=== PATIENT | female | born 1965 | race African-American/Black ===

== ENCOUNTER 2016-07-23 14:56 | Emergency (ER) | payer OTHER ==
[~2016-07-23 14:56] MED LIST: IBUPROFEN800 MG PO; TAMIFLU 75MG75 MG PO; TESSALON PERLE100 MG PO; [UNRECOGNIZED DRUG - OTHER] PO
[2016-07-23] MEDS ORDERED: LOSARTAN POTASS50 M1 PO (16:03)
[2016-07-23] MEDS ORDERED: JANUMET 50-5001 EACH PO (16:05)
--- NOTE | 2016-07-23 20:04 | ED PSYCHIATRIC COMPLAINT ---
History of Present Illness General Chief Complaint: Psychiatric Related Complaint Stated Complaint: BIBA FOR +SI Source: patient, police Exam Limitations: no limitations Vital Signs & Intake/Output Vital Signs & Intake/Output Vital Signs Date Time Temp Pulse Resp B/P Pulse O2 O2 Flow FiO2 Ox Delivery Rate 07/23 1534 Room Air 07/23 1534 97.3 72 16 164/73 Allergies Coded Allergies: No Known Allergies (08/26/15) Reconcile Medications Losartan Potassium 50 MG TABLET 1 TAB PO DAILY BLOOD PRESSURE (Reported) Sitagliptin Phos/Metformin HCl (Janumet 50-500 MG Tablet) 50 MG-500 MG TABLET 1 TAB PO BID DIABETES (Reported) Triage Note: PT MADE SI COMMENT TO HER CHILDREN'S FATHER OVER THE PHONE. PT DENIES SI AT THIS TIME. PT DENIES ANY PREVIOUS ATTEMPTS. PT STATES "I'M NOT CRAZY" Triage Nurses Notes Reviewed? yes HPI: Patient presents for evaluation of suicide ideation comments made toward her boyfriend after she found out that he had been cheating on her. Patient states that she wished to "get back at him" for what he had done. The patient states that she is no longer suicidal and denies any prior attempts at suicide. (REANNA JOHN,DIAMANTE Avina) Past History Travel History Traveled to [place] past 21 day No Medical History Any Pertinent Medical History? 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 No (DIAMANTE FORTE MD) Review of Systems Review of Systems Constitutional: Reports: no symptoms. EENTM: Reports: no symptoms. Respiratory: Reports: no symptoms. Cardiovascular: Reports: no symptoms. GI: Reports: no symptoms. Genitourinary: Reports: no symptoms. Musculoskeletal: Reports: no symptoms. Skin: Reports: no symptoms. Neurological/Psychological: Reports: see HPI. Hematologic/Endocrine: Reports: no symptoms. Immunologic/Allergic: Reports: no symptoms. All Other Systems: Reviewed and Negative (DIAMANTE FORTE MD) Physical Exam Physical Exam General Appearance: SEE BELOW Neurological/Psychiatric: SEE BELOW Comments: General: Alert, calm, cooperative Head: Normocephalic, atraumatic Eyes: Normal inspection, no nystagmus, EOMI Ears: Normal inspection Nose: Normal inspection Throat: Moist mucosa Neck: Supple, no goiter Heart: Regular rate and rhythm, no murmurs rubs or gallops Lungs: Clear to auscultation bilaterally with good air entry Abdomen: Soft nontender nondistended, normal bowel sounds Chest: Nontender Extremities: Normal range of motion grossly, no tremors present, no cyanosis clubbing or edema of the upper extremities Neurologic: cranial nerves II through XII grossly intact, speech clear, gait normal Psychiatric: No apparent delusions or hallucinations, no pressured speech or thought blocking SAD PERSONS Done? DEFERRED TO CRISIS (REANNA JOHN,DIAMANTE Avina) Progress Differential Diagnosis: DEPRESSION, SUICIDE IDEATION, BIPOLAR DISORDER, BORDERLINE PERSONALITY Plan of Care: Orders Procedure Date/time Status URINE DRUG SCREEN FOR ER ONLY 07/23 1838 Complete ED CRISIS PSYCH CONSULT 07/23 1838 Active Laboratory Tests 07/23/16 1840: Urine Opiates Screen < 100.00, Methadone Screen < 40, Barbiturate Screen < 60, Ur Phencyclidine Scrn < 6.00, Amphetamines Screen < 100, U Benzodiazepines Scrn < 85, Urine Cocaine Screen < 50, Urine Cannabis Screen < 5.00 Comments: 07/23/2016 8:03:37 PM patient signed out to Dr. Pressley at shift chart changer. (REANNA JOHN,DIAMANTE Avina) Comments: Cleared by psychiatry for discharge (ROMMEL PRESSLEY MD) Departure Departure Condition: Stable Referrals: PATIENT HAS NO PRIMARY CARE DR (PCP/Family) (DIAMANTE FORTE MD) Departure Time of Disposition: 2202 Disposition: HOME OR SELF CARE Clinical Impression Primary Impression: Reactive depression (situational) Additional Instructions: Follow up with the recommendations of the slurry worker Departure Forms: Customer Survey General Discharge Information RELEASE- WORK (ROMMEL PRESSLEY MD)
[2016-07-23 22:22] VITALS: BP 166/74
--- NOTE | 2016-07-23 22:30 | ED PSYCH CRISIS CONSULTATION ---
Crisis Consult Basic Assessment Date of Consult: 07/23/16 Responsible Person/Accompanied By: KORY Insurance Authorization: Insurance #1: Insurance name: [id number] Phone number: Policy number: [id number] Group number: Authorization number: ED Provider: Patient's ED Provider: ROMMEL PRESSLEY MD Primary Care Physician: Patient's PCP: PATIENT HAS NO PRIMARY CARE DR PCP's Phone Number: Current Psychiatrist: None Chief Complaint: Psychiatric Related Complaint Patient's Quote: "Just a misunderstanding." Present Illness: The patient is a 50 year old, single, female, of [place] descent presenting to the ED after making a suicidal statement. The patient presented alert, oriented, calm and cooperative during the evaluation. She reports that she was brought to the ED, over a misunderstanding. She recently found some evidence that her intermediate designer partner (father of her 2 children), was allegedly having an affair. She confronted him, with the evidence via text message and wanted him to come home to discuss further. She states that she then made a comment that she "broke his laptop" and that "she would kill herself." She adamantly denies intention to act on her statement and notes that she just wanted him to come home and discuss further. She states that "she has 3 beautiful children," that she needs to be alive for. She notes that he arrived with the police and they escorted her to the ED. She has been with him for 15 years and they have a 6 and 10 year old together. They moved to [place] from [place] and bought a two family home. 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 She states that they argue over her working in [place], because he would like her to work closer. She sates that she likes having her independence, that she has been there for 10 years and does not want to leave at this time. She denies any history of mental health or substance abuse issues or treatment. She denies any current or history of SI / HI / AH / VH. She states that she is upset about her relationship, however is not sure if she would like to leave him, as they have 2 children, who are doing well in this school system. She does have family in [facility] and can stay with them if needed. She denies any current or history of trauma or abuse and states that she and her [facility] boyfriend, have never been physically abusive towards each other. Of note, her two children were at home with her older son (24 years old) and there was no concern for their safety. She would like to go home and possibly explore couples counseling or counseling for herself. She is future focused and asked for a note, to excuse her from work ( for the weekend), as she is not sure she can concentrate. Her mother, Afua Christopher, was present and stated that she drove to [place], because she wanted to see how the patient was for herself. She states now that she has seen the patient and has spoken to her, that she believes she is safe. Afua states that the patient has never had any mental health issues and has never made any previous suicide attempts. She believes that the patient can go home and that she is not a danger to herself. RAYMUNDO spoke to the patients [facility] partner, Jefferson ([phone]), for collateral information. Jefferson confirms that the patient has never had any mental health issues and that he has never known her to be suicidal. He states that he was not concerned for her safety, earlier today, but rather her report that she was destroying his property. He notes that he brought the police to speak with her, because he had an issue with a previous relationship and he did not want to be put in a similar position, of being accused of anything. He states that he would like the patient to leave her job and work closer to home, or learn to drive. He states that he spends the majority of the day taking care of his children, working and then picking her up in [place], at her job. He states that he is willing to do whatever she wants. He states if she wants to go to counseling he will go, if she wants to move out, he will help her and if she wants him to move out, that he will do that. He states that he loves her and misses her and will do whatever she wants. He is clear that he is not concerned for her safety and does not think that she will kill herself. Patient's Address: [address] [place] [address] [place] [address] Other Phone Number: Who Do You Live With? Significant Other Family/Informants Interviewed: Mother Afua Christopher and intermediate designer boyfriend Jefferson ([phone]). Allergies - Coded Allergies: No Known Allergies (08/26/15) Current Medications - Scheduled Medications Losartan Potassium 50 MG TABLET 1 TAB PO DAILY BLOOD PRESSURE #90 (Reported) Entered as Reported by LASHA GANN on 07/23/16 1603 Sitagliptin Phos/Metformin HCl (Janumet 50-500 MG Tablet) 50 MG-500 MG TABLET 1 TAB PO BID DIABETES #90 (Reported) Entered as Reported by LASHA GANN on 07/23/16 1605 Laboratory Results: Laboratory Tests 07/23/16 1840: Urine Opiates Screen < 100.00, Methadone Screen < 40, Barbiturate Screen < 60, Ur Phencyclidine Scrn < 6.00, Amphetamines Screen < 100, U Benzodiazepines Scrn < 85, Urine Cocaine Screen < 50, Urine Cannabis Screen < 5.00 Past History Past Medical History Neurological: NONE EENT: NONE Cardiovascular: HIGH BLOOD PRESSURE Respiratory: NONE Gastrointestinal: NONE Hepatic: NONE Renal: NONE Musculoskeletal: NONE Psychiatric: NONE Endocrine: diabetes Blood Disorders: NONE Cancer(s): NONE 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 Physical Limitations (Interventions): None noted Psychiatric Treatment History Psych Treatment Psychiatric Treatment No Inpatient Treatment No Outpatient Treatment No Location of Treatment N/A Reason for Treatment N/A Dates of Treatment N/A Response to Treatment N/A Diagnosis by History: N/A Substance Use/Abuse History Drug Use/Abuse Substances Used/Abused No First Use N/A Last Used N/A How much used/taken N/A How often N/A For how long N/A Route of use N/A Substance Abuse Treatment Substance Abuse Treatment Past Substance Abuse [place] No Inpatient Treatment No Outpatient Treatment No Location of Treatment N/A Reason for Treatment N/A Dates of Treatment N/A Response to Treatment N/A Comments: N/A Current Mental Status Mental Status Orientation: Confused (Future focused), Person, Place, Situation Affect: Sad Speech: WNL Neuro-vegetative: WNL Appearance Appearance- Dress/Hygiene: The patient was dressed in hospital scrubs, neat clean and well kempt. She had good particiaption in the evaluation and was calm and cooperative. She was tearful, while dicussing her relationship issues. Behaviors Thought Process: Logical/Rational (Future focused), WNL Thought Content: WNL, The patient states that she needs to think about what her next step should be. She is aware that she owns a home and that her 2 children are doing well in their school system. She has family that she can stay with, however wants to do what is best for the children, noting that they love their father very much. Memory: WNL Insight: WNL SI/HI Risk Assessment Past Suicidal Ideation/Attempts No (Pt. and family denies Hx.) Current Suicidal Ideation/Att No Past Homicidal Ideation/Att: No Current Homicidal Ideation/Attempts No Degree of Intent: None, The patient states that she made the suicidal comment earlier today, to get her [facility] boyfriend to come home and discuss their relationship issues. She is adamant that she is not suicidal and would never do that, as she has 3 children that she needs to take care of. She states that she has never had any suicide attempts and has never thought of killing herself. Her intermediate designer boyfriend and mother confirm that they have never known her to be suicidal and they do not believe that she is a risk to herself. Danger To: N/A Gravely Disabled: N/A Risk Factors: Ongoing relationship issues Lethality Ratin (mild) PTSD Checklist PTSD Done? patient declined (Pt. denies trauma & abuse hx.) ED Management Sitter: Yes Restraints: No DSM5/PS Stressors/Medical Prob Diagnosis' (DSM 5, Stressors, Medical): F43.20 Unspecified Adjustment Disorder Current GAF: 51 Comments: N/A Departure Disposition Psych Medical Clearance Date: 07/23/16 Medically Cleared at: 2029 Time Started: 2029 Time Ended: 2199 Psychiatrist Consulted: Benjy Sin MD Date Disposition Established: 07/23/16 Time Disposition Established: 2199 Plan for Disposition - Modality: Discharge home with counseling referrals Facility: Patient to Arrange Contact: N/A Telephone: N/A Rationale for Disposition: The patient presented to the ED after making a suicidal statement, via text. She is clear that she only made the statement to get her boyfriend to come home and discuss relationship issues futher. She denies any current or history of SI / HI / AH / VH. She is future focused and states she has never thought about harming herself. She states that she has 3 beautiful children and that she would never kill herself. She was interested in counseling, whether it be couples counseling or individual counseling. Her mother Afua and boyfriend Jefferson were not concerned for her safety and both were clear that they did not think that she would ever kill herself. The case was discussed with Dr. Sin and he did not find her to be an acute risk to self or others and recommended that she be discharged home, with a list of couseling referrals. Additional Instructions: N/A Referrals PATIENT HAS NO PRIMARY CARE DR (PCP/Family)
== END 2016-07-23 22:27 ==
LOC: ERH 14:56
DX: F32.9 Major depressive disorder, single episode, unspecified (principal)
CPT/HCPCS: 80307; G0463

== ENCOUNTER 2016-08-22 00:25 | Emergency (ER) | payer OTHER ==
[~2016-08-22] VITALS: Ht 157.5 cm; Wt 90.7 kg
[~2016-08-22 00:25] MED LIST changes: +JANUMET 50-5001 EACH PO; +LOSARTAN POTASS50 M1 PO
--- NOTE | 2016-08-22 01:45 | ED HEADACHE COMPLAINT ---
History of Present Illness General Chief Complaint: Headache Stated Complaint: BURKETT Source: patient Exam Limitations: no limitations Vital Signs & Intake/Output Vital Signs & Intake/Output Vital Signs Date Time Temp Pulse Resp B/P Pulse O2 O2 Flow FiO2 Ox Delivery Rate 08/22 0049 97.4 102 18 181/81 100 Room Air Allergies Coded Allergies: No Known Allergies (08/26/15) Reconcile Medications Losartan Potassium 50 MG TABLET 1 TAB PO DAILY BLOOD PRESSURE (Reported) Sitagliptin Phos/Metformin HCl (Janumet 50-500 MG Tablet) 50 MG-500 MG TABLET 1 TAB PO BID DIABETES (Reported) Triage Note: POUNDING HEADACHE STARTED YESTERDAY,GETTING WORSE,HAS NOT TAKEN ANY OTC MEDS DX IN PAST WITH TENSION HEADACHE AND HAS BEEN UNDER ALOT OF STRESS Triage Nurses Notes Reviewed? yes HPI: Patient presents for evaluation of a severe headache across the forehead and behind the eyes that began gradually on . He got worse over yesterday and even more so since about 8:00 tonight. Patient states that she has had a headache like this before that was attributed to muscle tension. This was back in 2005 and she states she had a full workup including a spinal tap but no cause was found. He states she's been under a lot of stress recently. The pain is described as a throbbing tightness with no associated nausea. She states she feels some mild neck stiffness but otherwise ranges her neck fully. She hasn't tried any medications for the pain yet. Past History Travel History Traveled to [place] past 21 day No Medical History Any Pertinent Medical History? 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 No Review of Systems Review of Systems Constitutional: Reports: no symptoms. Eyes: Reports: no symptoms. Ears, Nose, Throat, Mouth: Reports: no symptoms. Respiratory: Reports: no symptoms. Cardiovascular: Reports: no symptoms. Gastrointestinal/Abdominal: Reports: no symptoms. Genitourinary: Reports: no symptoms. Musculoskeletal: Reports: no symptoms. Skin: Reports: no symptoms. Neurological/Psychological: Reports: headache. Hematologic/Endocrine: Reports: no symptoms. Endocrine: Reports: no symptoms. Immunologic/Allergic: Reports: no symptoms. All Other Systems: Reviewed and Negative Physical Exam Physical Exam Cranial Nerves: SEE BELOW Comments: Gen.: Well-nourished, well-developed, no acute respiratory distress. Head: Normocephalic, atraumatic. Eyes: Normal inspection bilaterally, PERRLA, EOMI Ears: Normal inspection bilaterally Nose: Normal inspection Throat/mouth : Moist mucosa Face: Mild tenderness to percussion over the frontal and maxillary sinuses, nontender over the temples Neck: Supple, full range of motion, no goiter Heart: Regular rate and rhythm, no murmurs rubs or gallops Lungs: Clear to auscultation bilaterally with normal air entry Chest: Nontender Back: Normal range of motion Abdomen: Soft, nontender, nondistended, normal bowel sounds Extremities: Normal range of motion grossly, equal radial pulses, no cyanosis clubbing or edema Neurologic: Cranial nerves 2 through 12 intact, speech is clear Skin: warm and dry Psychiatric: Calm, cooperative, no apparent delusions or hallucinations Core Measures Severe Sepsis Present: No Septic Shock Present: No Progress Differential Diagnosis: migraine BURKETT, musculoskeletal pain, tension BURKETT Plan of Care: Current Medications Sig/Chano Start time Last Medication Dose Stop Time Status Admin Promethazine HCl 25 MG ONCE ONE 08/22 144 UNVr (Phenergen) 08/22 145 Comments: 08/22/2016 2:40:13 AM patient states that her headache is now resolved and she is feeling a bit sleepy. She wishes to go home and go to bed. Departure Departure Disposition: HOME OR SELF CARE Condition: Stable Clinical Impression Primary Impression: Tension headache Referrals: PATIENT HAS NO PRIMARY CARE DR (PCP/Family) Additional Instructions: Go home and try to get a good night's sleep. Follow-up with your primary care doctor (or the [facility]) this week for reevaluation. Return if any concerns or sudden worsening. Thank you for choosing the [facility] for your care. It was a pleasure to serve you today. Horacio Mancia M.D. [facility] Departure Forms: Customer Survey General Discharge Information
[2016-08-22 02:49] VITALS: BP 186/87
[2016-08-22] MEDS ORDERED: COZAAR50 M1 PO (03:10)
[2016-08-22] MEDS ORDERED: JANUMET 50-5001 EACH PO (03:10)
== END 2016-08-22 03:34 ==
LOC: ERH 00:25
DX: G44.209 Tension-type headache, unspecified, not intractable (principal)
CPT/HCPCS: 96372; J2550

== ENCOUNTER 2016-12-23 18:22 | Emergency (ER) | payer OTHER ==
[~2016-12-23] VITALS: Ht 160 cm; Wt 98.4 kg
[~2016-12-23 18:22] MED LIST changes: +COZAAR50 M1 PO
[2016-12-23 18:31] VITALS: BP 113/76
--- NOTE | 2016-12-23 18:58 | ED HEADACHE COMPLAINT ---
History of Present Illness General Chief Complaint: Headache Stated Complaint: BURKETT Source: patient, old records Exam Limitations: no limitations Vital Signs & Intake/Output Vital Signs & Intake/Output ED Intake and Output 12/24 0000 12/23 1200 Intake Total Output Total Balance Patient 217 lb Weight Weight Reported by Patient Measurement Method Allergies Coded Allergies: No Known Allergies (08/26/15) Reconcile Medications Butalb/Acetaminophen/Caffeine (Uuikuf-Axssgicf-Xgxz 50-325-40) 50 MG-325 MG-40 MG TABLET 1 TAB PO Q6HR PRN headache Losartan Potassium (Cozaar) 50 MG TABLET 1 TAB PO DAILY blood pressure Sitagliptin Phos/Metformin HCl (Janumet 50-500 MG Tablet) 50 MG-500 MG TABLET 1 TAB PO DAILY DM (Reported) Triage Note: C/O FRONTAL HEADACHE SIINCE LAST PM, WORSE TODAY WITH BLURRED VISION. DENIES NAUSEA OR VOMITING. Triage Nurses Notes Reviewed? yes Onset: Gradual Duration: day(s): (2), constant Timing: recent history Quality/Severity: mild, moderate Severity Numbers: 5 Head Injury Location: global No Modifying Factors: none Associated Symptoms: denies HPI: 51-year-old female with history of hypertension diabetes presents to ER for evaluation complaining of a generalized headache since last night. She states she's had 4 episodes of similar headaches in the past for which she's been worked up with no apparent cause known. She was last here in July of this year for which she received a shot which helped. No recent fall or head trauma. She reports a photosensitivity, no nausea no vomiting no neck or back pain no fever no chills. She is not taken anything for her symptoms. (AMRIK ANAND) Past History Travel History Traveled to [place] past 21 day No Medical History Any Pertinent Medical History? 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 No (AMRIK ANAND) Review of Systems Review of Systems Constitutional: Reports: see HPI. Comments Review of systems: See HPI, All other systems negative. Constitutional, no chills no fever, no malaise HEENT: No visual changes no sore throat no congestion Cardiovascular: No chest pain , no palpitatio Skin: no rashes, no change in skin Respiratory: No dyspnea no cough GI: No nausea no vomiting, : No dysuria Muscle skeletal: No joint pain, no joint swelling, no back pain, no neck pain, Neurologic: No numbness no confusion, headache Psych: No stress Heme/endocrine: No bruising Immunology: No lymphadenopathy (AMRIK ANAND) Physical Exam Physical Exam General Appearance: well developed/nourished, no apparent distress, alert, awake Cranial Nerves: normal hearing, normal speech, PERRL Comments: Well-developed well-nourished person in no acute distress HEENT: Normal EENT exam; PERRL, EOMI, no nystagmus. HEAD is atraumatic. moist mucous membranes. Neck: Supplenormal range of motion Back: Nontender, Full range of motion Cardiovascular: Regular rate and rhythms no murmurs Respiratory: No respiratory distress. Patient speaking in full complete sentences. Breath sounds clear to auscultation bilaterally: NO W/R/R Extremity: No edema, full range of motion of extremities, normal and equal pulses bilaterally, 5 out of 5 strength noted to bilateral upper and lower extremities Neuro: Alert oriented x3, motor sensory normal, cranial nerves II through XII grossly intact. There were no obvious focal neurologic abnormalities. Skin: No appreciable rash on exposed skin, skin is warm and dry. Psych: Mood and affect is normal, memory and judgment is normal. Core Measures Severe Sepsis Present: No Septic Shock Present: No (AMRIK ANAND) Progress Differential Diagnosis: cluster BURKETT, encephalitis, IC mass/tumor, intracranial Hem., meningitis, migraine BURKETT, musculoskeletal pain, subarach. Hem., tension BURKETT, temporal arteritis Plan of Care: Current Medications Sig/Chano Start time Last Medication Dose Stop Time Status Admin Ketorolac 60 MG ONCE ONE 12/23 1944 UNVr 12/23 Tromethamine 12/23 (Toradol) Promethazine HCl 25 MG ONCE ONE 12/23 1944 UNVr 12/23 (Phenergen) 12/23 Patient states that when she was. Here she is medicated with Toradol Phenergan IM which helped with her symptoms. She is in agreement with plan will be medicated the same today advise close up with her primary care physician, Tylenol Motrin for pain she feels comfortable with plan (AMRIK ANAND) Departure Departure Time of Disposition: 1958 Disposition: HOME OR SELF CARE Condition: Stable Clinical Impression Primary Impression: Migraine headache Referrals: UNKNOWN (PCP/Family) Additional Instructions: follow up with your primary care physician. Ibuprofen 800 mg every 8 hours. fioricet for headache. this has tylenol in it. return to the ER with any concerns Departure Forms: Customer Survey General Discharge Information Prescriptions: Current Visit Scripts Butalb/Acetaminophen/Caffeine (Wsrowe-Ipgubhxc-Elun 50-325-40) 1 TAB PO Q6HR PRN headache #15 TAB (AMRIK ANAND) PA/YARD SWITCH OPERATOR Co-Sign Statement Statement: ED Attending supervision documentation- [] I saw and evaluated the patient. I have also reviewed all the pertinent lab results and diagnostic results. I agree with the findings and the plan of care as documented in the PA's/YARD SWITCH OPERATOR's documentation. [X] I have reviewed the ED Record and agree with the PA's/YARD SWITCH OPERATOR's documentation. [] Additions or exceptions (if any) to the PAs/YARD SWITCH OPERATOR's note and plan are summarized below: [] (KISHA JOHN,FRANCK)
[2016-12-23] MEDS ORDERED: BUTALB-ACETAMI1 EACH PO (20:01)
== END 2016-12-23 20:17 ==
LOC: ERH 18:22
DX: G43.909 Migraine, unspecified, not intractable, without status migrainosus (principal)
CPT/HCPCS: 96372; J1885; J2550